=== PATIENT | male | born 1960 | race Caucasian/White ===

== ENCOUNTER 2017-02-02 19:48 | Emergency (ER) | payer OTHER ==
--- NOTE | 2017-02-02 20:41 | DIAGNOSTIC IMAGING REPORT ---
PROCEDURE: XR CHEST 2 VIEW INDICATION: CHEST PAIN TECHNIQUE: PA and lateral views. COMPARISON: None. FINDINGS: There is minor linear scarring at the left lung base. Lungs are otherwise clear. Heart and mediastinum are normal. There are mild degenerative changes of the thoracic spine. IMPRESSION: 1. Negative chest.
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
--- NOTE | 2017-02-02 20:46 | DIAGNOSTIC IMAGING REPORT ---
PROCEDURE: CT CERVICAL SPINE W/O CONTRAST INDICATION: PAIN TECHNIQUE: Noncontrast axial images with sagittal and coronal reformations. COMPARISON: None. FINDINGS: There are mild degenerative change of the cervical spine. Osseous structures and disc spaces are otherwise normal. No evidence of an acute process or fracture. Alignment is normal. IMPRESSION: 1. Mild degenerative changes. 2. Otherwise negative CT cervical spine. No evidence of an acute process or fracture. 3. Findings discussed with JOSSELINE Burns. All CT scans at this facility use dose modulation, iterative reconstruction, and/or weight-based dosing when appropriate to reduce radiation dose to as low as reasonably achievable.
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
--- NOTE | 2017-02-02 21:42 | ED ORDER SUMMARY ---
..... Patient: NEHEMIAS VILLAGOMEZ OrderSheet [facility] VisitID: [id number] [address] [place] [address] 56y, M Registration Date/Time: 02/02/2017 ORDER SHEET Weight: 72.5 kg (stated) Allergies: None GENERAL ORDERS: CT Head wo Cont Urgent (20:00 02/02/2017 EKoroleva P.A.-C) (Ack 20:18 ALawrence ER Tech1) (20:19 ASchmuck) CT Cervical Spine wo Cont Urgent (20:00 02/02/2017 EKoroleva P.A.-C) (Ack 20:18 ALawrence ER Tech1) (20:19 ASchmuck) Chest 2V Urgent (20:00 02/02/2017 EKoroleva P.A.-C) (Ack 20:18 ALawrence ER Tech1) (20:19 ASchmuck) EKG - ER Stat (20:01 02/02/2017 EKoroleva P.A.-C) (20:12 ASchmuck) MEDICATION ORDERS: IV FLUIDS: ORDER SHEET NOTES: [Electronically signed by Ingrid Gibson P.A.-C (21:36 02/02/2017)] [Electronically signed by Patti Damon (23:33 02/02/2017)] [Electronically locked/signed by Patti Damon (23:33 02/02/2017)]
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
--- NOTE | 2017-02-02 21:42 | ED ORDER SUMMARY ---
..... Patient: NEHEMIAS VILLAGOMEZ OrderSheet [facility] VisitID: [id number] [address] [place] [address] 56y, M Registration Date/Time: 02/02/2017 ORDER SHEET Weight: 72.5 kg (stated) Allergies: None GENERAL ORDERS: CT Head wo Cont Urgent (20:00 02/02/2017 EKoroleva P.A.-C) (Ack 20:18 ALawrence ER Tech1) (20:19 ASchmuck) CT Cervical Spine wo Cont Urgent (20:00 02/02/2017 EKoroleva P.A.-C) (Ack 20:18 ALawrence ER Tech1) (20:19 ASchmuck) Chest 2V Urgent (20:00 02/02/2017 EKoroleva P.A.-C) (Ack 20:18 ALawrence ER Tech1) (20:19 ASchmuck) EKG - ER Stat (20:01 02/02/2017 EKoroleva P.A.-C) (20:12 ASchmuck) MEDICATION ORDERS: IV FLUIDS: ORDER SHEET NOTES: [Electronically signed by Ingrid Gibson P.A.-C (21:36 02/02/2017)] [Electronically signed by Patti Damon (23:33 02/02/2017)] [Electronically locked/signed by Patti Damon (23:33 02/02/2017)]
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
--- NOTE | 2017-02-02 23:33 | ED MAR SUMMARY ---
..... Medication Administration Record [facility] [address] [place], [place] [id number] Patient: NEHEMIAS VILLAGOMEZ Visit ID: [id number] 56y, M Weight: 72.5 kg Height/Length: 69 in BMI: 23.6 ALLERGIES: None
--- NOTE | 2017-02-02 23:33 | ED MAR SUMMARY ---
..... Medication Administration Record [facility] [address] [place], [place] [id number] Patient: NEHEMIAS VILLAGOMEZ Visit ID: [id number] 56y, M Weight: 72.5 kg Height/Length: 69 in BMI: 23.6 ALLERGIES: None
--- NOTE | 2017-02-02 23:34 | ED MED RECONCILIATION SUMMARY ---
Patient: NEHEMIAS VILLAGOMEZ Medication Reconciliation Report [facility] VisitID: [id number] [address] [place] [address] 56y, M Registration Date/Time: 02/02/2017 Weight: 72.5 kg Height/Length: 69 in. BMI: 23.6 ALLERGIES: None The patient's Home Medications are listed below: THE FOLLOWING MEDICATIONS NEED TO BE RECONCILED: Albuterol Sulfate ER Oral Atripla Oral Multi Vitamin Daily Oral The source(s) of the original Home Medication information: patient The following Medications were given to the patient in the Emergency Department: None. The following Medications were prescribed to the patient: Take OTC medications according to label instructions. Available over the counter. -- Ingrid Gibson P.ABrandon Motrin (available over the counter): take according to label instructions. -- Ingrid Gibson P.Harrison
--- NOTE | 2017-02-02 23:34 | ED MED RECONCILIATION SUMMARY ---
Patient: NEHEMIAS VILLAGOMEZ Medication Reconciliation Report [facility] VisitID: [id number] [address] [place] [address] 56y, M Registration Date/Time: 02/02/2017 Weight: 72.5 kg Height/Length: 69 in. BMI: 23.6 ALLERGIES: None The patient's Home Medications are listed below: THE FOLLOWING MEDICATIONS NEED TO BE RECONCILED: Albuterol Sulfate ER Oral Atripla Oral Multi Vitamin Daily Oral The source(s) of the original Home Medication information: patient The following Medications were given to the patient in the Emergency Department: None. The following Medications were prescribed to the patient: Take OTC medications according to label instructions. Available over the counter. -- Ingrid Gibson P.ABrandon Motrin (available over the counter): take according to label instructions. -- Ingrid Gibson P.Harrison
== END 2017-02-02 21:37 | disposition home or self-care (01) ==
LOC: ED SRH 19:48
DX: F10.20 Alcohol dependence, uncomplicated (principal); F17.210 Nicotine dependence, cigarettes, uncomplicated; Z79.899 Other long term (current) drug therapy; V57.0XXA Driver of pick-up truck or van injured in collision with fixed or stationary object in nontraffic accident, initial encounter; Y93.89 Activity, other specified; Y99.9 Unspecified external cause status; Y92.410 Unspecified street and highway as the place of occurrence of the external cause; J45.909 Unspecified asthma, uncomplicated